=== PATIENT | female | born 1980 | race Caucasian/White ===

== ENCOUNTER 2016-08-02 08:23 | Emergency (ER) | payer SELFPAY ==
[~2016-08-02] VITALS: Wt 64.0 kg
[~2016-08-02 08:23] MED LIST: CARI350T PO; CYCL-319 PO; ERYT1OIN6 LEFT EYE; FAMO-18 PO; IBUP-1542 PO; NITR-58 PO
[2016-08-02 10:13] LABS: POTASSIUM 4.5 mmol/L (3.5-5.1)
[2016-08-02 10:16] LABS: CREATININE 0.66 mg/dl (0.44-1.00)
[2016-08-02 10:17] LABS: CALCIUM 9.5 mg/dl (8.4-10.2)
[2016-08-02 10:25] LABS: BASOPHILS % 0.3 % (0.0-2.0); EOSINOPHILS # 0.1 10^3/ul (0.0-0.5); EOSINOPHILS % 0.6 % (0.0-7.0); HEMATOCRIT 39.9 % (37.0-47.0); HEMOGLOBIN 13.4 g/dl (12.0-16.0); LYMPHOCYTES # 2.3 10^3/ul (0.8-2.9); LYMPHOCYTES % 26.2 % (15.0-51.0); MEAN CORPUSCULAR HEMOGLOBIN 27.8 pg (29.0-33.0); MEAN CORPUSCULAR HGB CONC 33.7 g/dl (32.0-37.0); MEAN CORPUSCULAR VOLUME 82.4 fl (82.0-101.0); MEAN PLATELET VOLUME 8.6 fl (7.4-10.4); MONOCYTE # 0.5 10^3/ul (0.3-0.9); MONOCYTES % 5.3 % (0.0-11.0); NEUTROPHIL # 5.9 10^3/ul (1.6-7.5); NEUTROPHILS % 67.6 % (39.0-77.0); PLATELET COUNT 256 10^3/UL (140-440); RED BLOOD COUNT 4.84 10^6/ul (4.20-5.40); RED CELL DISTRIBUTION WIDTH 13.9 % (11.5-14.5); UNCORRECTED WBC 8.8 10^3/ul (4.8-10.8); WHITE BLOOD COUNT 8.8 10^3/ul (4.8-10.8)
[2016-08-02 10:27] LABS: CONDITION 1
--- NOTE | 2016-08-02 10:29 | RADRPT ---
PROCEDURE: CT Abdomen and Pelvis without contrast. CLINICAL INDICATION: Abdominal pelvic pain. TECHNIQUE: CT scan of the abdomen and pelvis without contrast was performed on a multidetector hig h-resolution CT scanner. The patient was scanned without intravenous contrast. Coronal and sagittal reformatted images were obtained from the axial source images. Images were reviewed on a high-resol [employer] PACS workstation. The total exam CTDI equals 12.20 mGy and the total exam DLP equals 674.10 mG y-cm. One or more of the following dose reduction techniques were used: - Automated exposure control. - Adjustment of the mA and/or kV according to patient size. - Use of iterative reconstruction technique. COMPARISON: None. FINDINGS: CT abdomen: The lung bases are clear. The heart size is normal, without pericardial thickening or effusion. Th e liver is normal in size and density without focal mass or intrahepatic biliary dilatation. The sp humaira is normal in size and homogeneous in density. The stomach is partially collapsed, but is gross ly unremarkable. The pancreas as visualized is normal. No peripancreatic inflammatory changes are identified. The gallbladder and biliary tree are unremarkable and there is no evidence for biliary dilatation. The adrenal glands are symmetric and normal. The kidneys are symmetrically unremarkabl e as well. No renal calculus or obstructive uropathy or mass lesion is seen. The aorta is of normal caliber. There is no retroperitoneal lymphadenopathy. The latosha hepatis reg ion is clear. The bowel and mesentery, as visualized, are equally unremarkable. CT pelvis: The small bowel loops situated within the pelvis are unremarkable. The appendix is normal. The pel isela organs are grossly unremarkable on the basis of this noncontrast study. The pelvic sidewalls an d inguinal regions are clear. The sigmoid colon and rectum are unremarkable. No mass or adenopathy is seen. No free fluid is present. No acute inflammation is identified at this time. The surrounding osseous structures are unremarkable. No osteolytic or osteoblastic lesion is detect ed. IMPRESSION: 1. Unremarkable CT scan of the abdomen and pelvis. 2. No mass, lymphadenopathy, or focal acute inflammatory process. RPTAT: HMJB .Fidencio Steiner MD, MD Date Time Electronically viewed and signed by .Fidencio Steiner MD, on 08/02/2016 10:29 .B/
[2016-08-02 10:30] LABS: ADD UMIC NO; URINE BILIRUBIN (Dip) NEGATIVE (NEGATIVE); URINE BLOOD (Dip) NEGATIVE (NEGATIVE); URINE COLOR LT. YELLOW (YELLOW); URINE GLUCOSE (Dip) NEGATIVE (NEGATIVE); URINE KETONES (Dip) NEGATIVE (NEGATIVE); URINE LEUKOCYTE ESTERASE (Dip) NEGATIVE (NEGATIVE); URINE NITRITE (Dip) NEGATIVE (NEGATIVE); URINE TOTAL PROTEIN (Dip) NEGATIVE (NEGATIVE); URINE UROBILINOGEN (Dip) 0.2 E.U./dL (0.1-1.0)
--- NOTE | 2016-08-02 10:37 | ERD ---
ER Documentation Chief Complaint Date/Time DATE: 08/02/16 TIME: 10:32 Chief Complaint lower abdominal pain for 2 days. getting worse today. no n/v HPI The patient is a 36-year-old female here with right inguinal pain 2 days, onset was when she did some heavy lifting. She states the pain is moderate and intermittent. At rest she has no pain. With any heavy lifting she has the pain localized to her right inguinal area. She denies radiating pain, abdominal pain, nausea, vomiting, diarrhea, melena, hematochezia, constipation, recent illness, fever, chills, or any other symptoms or concerns at this time. Her last bowel movement was this morning and was normal. ROS All systems reviewed and are negative except as per history of present illness. Medications Home Meds Active Scripts Acetaminophen* (Tylenol*) 325 Mg Tablet, 2 TAB PO Q6 Y for PAIN AND OR ELEVATED TEMP, #20 TAB Prov:SUNDAR ANGEL, PIPE WASHER 08/02/16 Carisoprodol* (Soma*) 350 Mg Tablet, 350 MG PO TID Y for MUSCLE SPASMS, #15 TAB Prov:OSCAR SMITH I. PIPE WASHER 10/31/15 Cyclobenzaprine Hcl* (Cyclobenzaprine Hcl*) 10 Mg Tablet, 10 MG PO TID, #15 TAB Prov:OSCAR SMITH I. PIPE WASHER 10/31/15 Erythromycin (Erythromycin Opth) 3.5 Gm Oint..gm., 1 APPLIC LEFT EYE QID for 7 Days, EA Prov:OSCAR SMITH I. PIPE WASHER 10/31/15 Nitrofurantoin Monohyd Macrocr* (Macrobid*) 100 Mg Capsr, 100 MG PO BID for 5 Days, CAP Prov:OSCAR SMITH I. PIPE WASHER 10/31/15 Famotidine* (Pepcid*) 20 Mg Tablet, 20 MG PO BID for gerd for 14 Days, TAB Prov:MAYRA MONTEZ 12/28/14 Ibuprofen* (Motrin*) 600 Mg Tab, 600 MG PO Q6 Y for PAIN, #30 TAB Prov:MAYRA MONTEZ 12/28/14 Allergies Allergies: Coded Allergies: No Known Allergy (Verified , 10/31/15) PMhx/Soc History of Surgery: No Anesthesia Reaction: No Hx Neurological Disorder: No Hx Respiratory Disorders: No Hx Cardiac Disorders: No Hx Psychiatric Problems: No Hx Miscellaneous Medical Probl: No Hx Alcohol Use: No Hx Substance Use: No Hx Tobacco Use: No Physical Exam Vitals Vital Signs Date Time Temp Pulse Resp B/P Pulse Ox O2 Delivery O2 Flow Rate FiO2 08/02/16 11:00 98.3 71 18 132/68 99 Room Air 08/02/16 08:27 98.2 91 18 136/71 98 Physical Exam INITIAL VITAL SIGNS: Reviewed by me, afebrile, no tachycardia, no tachypnea, oximetry 98% on room air GENERAL: Alert. Well developed and well nourished. No acute distress. Nontoxic -appearing. HEAD: Head is normocephalic. Atraumatic. EYES: EOMI. PERRL. No scleral icterus. No conjunctival injection. ENT: External ears, nose, and mouth normal. Nasal passages patent. Moist mucous membranes. NECK: Supple. Full range of motion. Trachea midline. No meningismus. RESPIRATORY: No tachypnea. Clear to auscultation bilaterally. No wheezing, rales , or rhonchi. CV: Regular rate and rhythm. No murmurs, rubs, or gallops ABDOMEN: + Right inguinal area tender to palpation. + Right lower quadrant tenderness to palpation. Soft, non-distended. No guarding. No rebound. No McBurney's point tenderness. Negative Choi sign. No masses. Bowel sounds normal in all quadrants. No hernia palpated. No warmth to touch. No skin discoloration. BACK: No CVA tenderness. Full ROM. EXTREMITIES: No obvious deformity. No clubbing or cyanosis. No edema. SKIN: Warm and dry. No diaphoresis. No obvious rashes or lesions. NEUROLOGIC: Alert and oriented x 3. Appropriate. Face is symmetric. Speech is normal. Moves all extremities equally. Result Diagram: 08/02/1695108/02/16951 Results 24 hrs Laboratory Tests Test 08/02/16 09:47 08/02/16 09:52 Urine Bilirubin NEGATIVE Urine Clarity CLEAR Urine Color LT. YELLOW Urine Glucose NEGATIVE% Urine Hemoglobin NEGATIVE Urine Ketones NEGATIVE Urine Leukocyte Esterase NEGATIVE Urine Nitrite NEGATIVE Urine Specific [place] 1.020 Urine Total Protein NEGATIVE Urine Urobilinogen 0.2 E.U./dL Urine pH 5.5 Anion Gap 17 Basophils # 0.010^3/ul Basophils % 0.3% Blood Morphology Comment Blood Urea Nitrogen 13mg/dl Calcium Level 9.5mg/dl Carbon Dioxide Level 25mmol/L Chloride Level 105mmol/L Creatinine 0.66mg/dl Eosinophils # 0.110^3/ul Eosinophils % 0.6% Glucose Level 82mg/dl Hematocrit 39.9% Hemoglobin 13.4g/dl Lymphocytes # 2.310^3/ul Lymphocytes % 26.2% Mean Corpuscular Hemoglobin 27.8pg Mean Corpuscular Hemoglobin Concent 33.7g/dl Mean Corpuscular Volume 82.4fl Mean Platelet Volume 8.6fl Monocytes # 0.510^3/ul Monocytes % 5.3% Neutrophils # 5.910^3/ul Neutrophils % 67.6% Nucleated Red Blood Cells # 0.010^3/ul Nucleated Red Blood Cells % 0.0/100WBC Platelet Count 41019^3/UL Potassium Level 4.5mmol/L Red Blood Count 4.8410^6/ul Red Cell Distribution Width 13.9% Sodium Level 142mmol/L White Blood Count 8.810^3/ul [place] [id number] Radiology Main Line: [phone] DIAGNOSTIC IMAGING REPORT Patient: HUBER VARGAS : 1980 Age: 36 Sex: F [id number] DOS: 08/02/16 0941 Ordering MD: SUNDAR ANGEL NP Location: [facility] Room/Bed: PROCEDURE: CT Abdomen and Pelvis without contrast. CLINICAL INDICATION: Abdominal pelvic pain. TECHNIQUE: CT scan of the abdomen and pelvis without contrast was performed on a multidetector high-resolution CT scanner. The patient was scanned without intravenous contrast. Coronal and sagittal reformatted images were obtained from the axial source images. Images were reviewed on a high-resolution PACS workstation. The total exam CTDI equals 12.20 mGy and the total exam DLP equals 674.10 mGy-cm. One or more of the following dose reduction techniques were used: - Automated exposure control. - Adjustment of the mA and/or kV according to patient size. - Use of iterative reconstruction technique. COMPARISON: None. FINDINGS: CT abdomen: The lung bases are clear. The heart size is normal, without pericardial thickening or effusion. The liver is normal in size and density without focal mass or intrahepatic biliary dilatation. The spleen is normal in size and homogeneous in density. The stomach is partially collapsed, but is grossly unremarkable. The pancreas as visualized is normal. No peripancreatic inflammatory changes are identified. The gallbladder and biliary tree are unremarkable and there is no evidence for biliary dilatation. The adrenal glands are symmetric and normal. The kidneys are symmetrically unremarkable as well. No renal calculus or obstructive uropathy or mass lesion is seen. The aorta is of normal caliber. There is no retroperitoneal lymphadenopathy. The latosha hepatis region is clear. The bowel and mesentery, as visualized, are equally unremarkable. CT pelvis: The small bowel loops situated within the pelvis are unremarkable. The appendix is normal. The pelvic organs are grossly unremarkable on the basis of this noncontrast study. The pelvic sidewalls and inguinal regions are clear. The sigmoid colon and rectum are unremarkable. No mass or adenopathy is seen. No free fluid is present. No acute inflammation is identified at this time. The surrounding osseous structures are unremarkable. No osteolytic or osteoblastic lesion is detected. IMPRESSION: 1. Unremarkable CT scan of the abdomen and pelvis. 2. No mass, lymphadenopathy, or focal acute inflammatory process. RPTAT: HMJB .Fidencio Steiner MD, MD Date Time Electronically viewed and signed by .Fidencio Steiner MD, MD on 08/02/2016 10:29 .B/ CC: SUNDAR ANGEL, MARLEE Procedures/MDM Nursing Notes Reviewed Previous Medical Records requested via [employer]. EMERGENCY DEPARTMENT COURSE / MEDICAL DECISION MAKING: The patient comes to the ED secondary to periumbilical and right lower inguinal area pain for the last 2-3 days, onset when she did some heavy lifting. Differential diagnosis upon initial evaluation includes but is not limited to: Incarcerated hernia, bowel obstruction, appendicitis, diverticulitis, and others. The case was discussed with supervising physician Dr. Malin, who saw and examined the patient at bedside. Per Dr. Malin, obtain a CT abdomen and pelvis without contrast, CBC, BMP, UA, and urine . CT abdomen without contrast per radiology report: IMPRESSION: 1. Unremarkable CT scan of the abdomen and pelvis. 2. No mass, lymphadenopathy, or focal acute inflammatory process. CBC: no e/o of systemic infection or severe anemia BMP: no e/o severe acidosis, alkalosis, renal failure, diabetic ketoacidosis Urine: no e/o acute infection or hematuria Urine : Negative Otherwise within normal limits, unremarkable, or as documented above. Given the patient's unremarkable CT scan results, her unremarkable lab results, her benign physical exam, her history of present illness, I have low suspicion at this time for appendicitis, diverticulitis, bowel obstruction, incarcerated hernia, or any other cause of acute surgical abdomen. Final impression: Abdominal pain, right inguinal pain Based on patient's history of present illness and physical exam. There is no evidence of life threatening injuries or illnesses at this time. On re-examination, patient resting in no distress, stable vital signs, reports feeling better and safe for discharge with outpatient follow up with PMD in 1-2 days. Patient given return precautions. The patient was provided a copy of her CT report and her lab findings. I instructed her to please bring these reports to her follow-up appointment with her primary care provider in 1-2 days. Patient's blood pressure was elevated but appears stable without evidence of hypertensive emergency, end organ damage, chest pain or shortness of breath. The patient was counseled about the risks of untreated hypertension and urged to pursue outpatient monitoring and therapy in 2-3 days with their primary care physician. Prescription Tylenol Departure Diagnosis: Primary Impression: Abdominal pain Abdominal location: right lower quadrant Qualified Code: R10.31 - Right lower quadrant abdominal pain Condition: Stable SUNDAR ANGEL NP Aug 02, 2016 10:37
[2016-08-02] MEDS ORDERED: ACET325T33 PO (10:38)
[2016-08-02 11:00] VITALS: BP 132/68; PULSE 71; RESP 18; TEMP 98.3
== END 2016-08-02 11:05 | disposition home or self-care (01) ==
LOC: FTE 08:23
DX: S39.91XA Unspecified injury of abdomen, initial encounter (principal); X50.0XXA Overexertion from strenuous movement or load, initial encounter; Y92.9 Unspecified place or not applicable
CPT/HCPCS: 36415; 74176; 80048; 81003; 85025

== ENCOUNTER 2018-10-20 08:26 | Emergency (ER) | payer MEDICAID ==
[~2018-10-20] VITALS: Ht 154.9 cm; Wt 71.0 kg
[~2018-10-20 08:26] MED LIST changes: +ACET325T33 PO; -CYCL-319 PO; +CYCL10TA7 PO; -FAMO-18 PO; +FAMO-96 PO; +IBUP-1561 PO; +LORA-441 PO
[2018-10-20 08:29] VITALS: BP 112/66; PULSE 90; RESP 18; Ht 154.9 cm; Wt 71.0 kg
[2018-10-20] MEDS ORDERED: BENZ-6 PO (10:08)
[2018-10-20] MEDS ORDERED: PROM6.2515 PO (10:08)
--- NOTE | 2018-10-20 10:16 | ERD ---
ER Documentation Chief Complaint Chief Complaint pt bib self with c/o cough on and off for months, pain with cough HPI 38-year-old female presenting with cough on and off for the last few months. Patient states she has some pain with coughing describes as productive. Denies any fevers. Has some mild shortness of breath. Denies other medical problems. NKDA. Surgical history of hernia repair. Social history denies ROS All systems reviewed and are negative except as per history of present illness. Medications Home Meds Active Scripts Promethazine Hcl* (Promethazine Hcl* Syrup) 6.25 Mg/5 Ml Syrup, 6.25 MG PO Q6H PRN for COUGH, #100 ML Prov:AMOL PONCE PA-C 10/20/18 Benzonatate* (Tessalon Perle*) 100 Mg Capsule, 100 MG PO Q8H PRN for COUGH, #30 CAP Prov:AMOL PONCE PA-C 10/20/18 Ibuprofen* (Motrin*) 400 Mg Tab, 400 MG PO Q8 for 5 Days, #15 TAB Prov:LORRAINE BARNES MD 11/24/17 Lorazepam* (Ativan*) 0.5 Mg Tablet, 0.5 MG PO Q8H PRN for ANXIETY, #10 TAB Prov:LORRAINE BARNES MD 11/24/17 Acetaminophen* (Tylenol*) 325 Mg Tablet, 2 TAB PO Q6 PRN for PAIN AND OR ELEVATED TEMP, #20 TAB Prov:SUNDAR ANGEL, CIRCULAR SHEAR OPERATOR 08/02/16 Carisoprodol* (Soma*) 350 Mg Tablet, 350 MG PO TID PRN for MUSCLE SPASMS, #15 TAB Prov:OSCAR SMITH I. CIRCULAR SHEAR OPERATOR 10/31/15 Cyclobenzaprine Hcl* (Cyclobenzaprine Hcl*) 10 Mg Tablet, 10 MG PO TID, #15 TAB Prov:OSCAR SMITH I. CIRCULAR SHEAR OPERATOR 10/31/15 Erythromycin (Erythromycin Opth) 3.5 Gm Oint..gm., 1 APPLIC LEFT EYE QID for 7 Days, EA Prov:OSCAR SMITH I. CIRCULAR SHEAR OPERATOR 10/31/15 Nitrofurantoin Monohyd Macrocr* (Macrobid*) 100 Mg Capsr, 100 MG PO BID for 5 Days, CAP Prov:OSCAR SMITH I. CIRCULAR SHEAR OPERATOR 10/31/15 Famotidine* (Pepcid*) 20 Mg Tablet, 20 MG PO BID for gerd for 14 Days, TAB Prov:MAYRA MONTEZ 12/28/14 Ibuprofen* (Motrin*) 600 Mg Tab, 600 MG PO Q6 PRN for PAIN, #30 TAB Prov:MONTEZNAVNEETMAYRA 12/28/14 Allergies Allergies: Coded Allergies: No Known Allergy (Verified , 10/31/15) PMhx/Soc History of Surgery: No Anesthesia Reaction: No Hx Neurological Disorder: No Hx Respiratory Disorders: No Hx Cardiac Disorders: No Hx Psychiatric Problems: No Hx Miscellaneous Medical Probl: No Hx Alcohol Use: No Hx Substance Use: No Hx Tobacco Use: No FmHx Family History: No diabetes, No coronary disease, No other Physical Exam Vitals Vital Signs Date Temp Pulse Resp B/P (MAP) Pulse Ox O2 O2 Flow FiO2 Time Delivery Rate 10/20/18 98.0 90 18 112/66 99 08:29 (81) Physical Exam GENERAL: The patient is well-appearing, well-nourished, in no acute distress HEENT: Atraumatic. Conjunctivae are pink. Pupils equal, round, and reactive to light. There is no scleral icterus. Tympanic membranes clear bilaterally. Oropharynx clear. NECK: C-spine is soft and supple. There is no meningismus. There is no cervical lymphadenopathy. CHEST: Clear to auscultation bilaterally. There are no rales, wheezes or rhonchi. HEART: Regular rate and rhythm. No murmurs, clicks, rubs or gallops. Procedures/MDM DIAGNOSTIC IMAGING REPORT Patient: HUBER VARGAS : 1980 Age: 38 Sex: F MR #: [id number] DOS: 10/20/18 0935 Ordering MD: MARLA PONCE PA-C Location: [facility] Room/Bed: PROCEDURE: XR Chest. CLINICAL INDICATION: Cough TECHNIQUE: Single frontal view of the chest was obtained COMPARISON: None FINDINGS: The heart and mediastinum are within normal limits. The lungs are clear. There is no pleural effusion or pneumothorax. RPTAT: AA IMPRESSION: No acute disease. MDM: 38-year-old female presenting with cough. I have low suspicion of r espiratory distress or hypoxia. I have low suspicion for pneumonia. Patient is discharged with strict ER precautions and supportive medications. Patient likely has viral cough. Patient is told if symptoms change or worsen to return immediately to the ER. All questions answered at discharge Departure Diagnosis: Primary Impression: Cough Condition: Stable Patient Instructions: Cough, Chronic, Uncertain Cause, (Adult) Referrals: COMMUNITY CLINICS YOU HAVE RECEIVED A MEDICAL SCREENING EXAM AND THE RESULTS INDICATE THAT YOU DO NOT HAVE A CONDITION THAT REQUIRES URGENT TREATMENT IN THE EMERGENCY DEPARTMENT. FURTHER EVALUATION AND TREATMENT OF YOUR CONDITION CAN WAIT UNTIL YOU ARE SEEN IN YOUR DOCTORS OFFICE WITHIN THE NEXT 1-2 DAYS. IT IS YOUR RESPONSIBILITY TO MAKE AN APPOINTMENT FOR FOLOW-UP CARE. IF YOU HAVE A PRIMARY DOCTOR --you should call your primary doctor and schedule an appointment IF YOU DO NOT HAVE A PRIMARY DOCTOR YOU CAN CALL OUR PHYSICIAN REFERRAL HOTLINE AT IF YOU CAN NOT AFFORD TO SEE A PHYSICIAN YOU CAN CHOSE FROM THE FOLLOWING [facility] [address] [facility] [address] [facility] [address] [facility] [address] [facility] [address] [facility]. [address] Additional Instructions: FOLLOW UP WITH YOUR PRIMARY CARE PHYSICIAN TOMORROW.Return to this facility if you are not improving as expected. AMOL PONCE PA-C Oct 20, 2018 10:16
== END 2018-10-20 10:14 | disposition home or self-care (01) ==
LOC: FTE 08:26
DX: R05 Cough (principal)
CPT/HCPCS: 71045; Z7502